=== PATIENT | female | born 1955 | race Native Hawaiian/Other Pacific Islander ===

== ENCOUNTER 2022-11-14 07:54 | Outpatient (CLI) | payer OTHER ==
[2022-11-14 08:32] LABS: POTASSIUM 3.6 mmol/L (3.6-5.2)
[2022-11-14 08:56] LABS: PLATELET COUNT 320 K/uL (152-353)
== END 2022-11-14 19:19 | disposition home or self-care (01) ==
LOC: LABW 07:54
PROVIDERS: ATTEND Nurse Practitioner Family
DX: Z00.00 Encounter for general adult medical examination without abnormal findings (principal); Z79.899 Other long term (current) drug therapy; R73.01 Impaired fasting glucose; R53.83 Other fatigue
CPT/HCPCS: 36415; 80053; 80061; 83036; 84443; 85027; 86803